=== PATIENT | female | born 1975 | race Caucasian/White ===

== ENCOUNTER → 2020-07-03 13:11 | Outpatient (CLI) | payer OTHER, SELFPAY ==
--- NOTE | 2020-07-03 13:18 | CT_ITS ---
STUDY: CT BRAIN AND SINUSES WITHOUT CONTRAST REASON FOR EXAM: Female, 44 years old. MAXILLARY SINUS,CYST FOUND ON MRI,FACIAL PAIN RADIATION DOSAGE (If Supplied By Facility): CTDIvol = ( 33.06 ) mGy, DLP = ( 850.38 ) mGycm TECHNIQUE: Transaxial CT imaging of the brain was performed without administration of contrast. Individualized dose optimization techniques were used for this CT. COMPARISON: No relevant priors. FINDINGS: CT BRAIN Small benign appearing submental lymph nodes. Normal calvarium. Normal size ventricles and extra-axial spaces for the patient''s age. Normal white matter tracts of the cerebral hemispheres. Normal basal ganglia and thalami. Normal brainstem. Normal cerebellum. There is no intracranial hemorrhage. There are no findings of an acute ischemic infarction. CT SINUSES Post Surgical Changes: None. Frontal Sinus and Recess: Normal aeration without mucosal inflammatory disease. Ethmoidal Sinuses: Normal aeration without mucosal inflammatory disease. Maxillary Sinuses: Mild degree of mucosal thickening at the base of the right maxillary sinus. Ostiomeatal Complex: Clear. Sphenoid Sinus: Normal aeration without mucosal inflammatory disease. Sphenoethmoidal Recess: Clear. Nasal Turbinate (Right): Middle Turbinate (Right): Normal. Middle Turbinate (Left): Normal. Inferior Turbinate (Right): Normal. Inferior Turbinate (Left): Normal. Nasal Septum: Midline. Nasal Airway: Clear. Cribiform Plate / Anterior Cranial Fossa: Normal. Orbits: Normal. CT/Sinus/Facial Bone IMPRESSION: Mild degree of mucosal thickening at the base of the right maxillary sinus. Electronically Signed: Jose Orosco MD at 14:19 EDT , Service support ,
== END ==
PROVIDERS: PCP Internal Medicine; Referring Provider Otolaryngology; Visit Provider Otolaryngology
DX: J32.0 Chronic maxillary sinusitis (principal); G50.0 Trigeminal neuralgia
CPT/HCPCS: 70486